=== PATIENT | female | born 1970 | race Caucasian/White ===

== ENCOUNTER 2019-05-17 07:45 | Emergency (ER) | payer BC ==
[~2019-05-17] VITALS: Ht 160 cm; Wt 44.5 kg
[2019-05-17 08:49] LABS: ABSOLUTE NEUTROPHILS 6.8 thou/uL (1.4-8.2); BASOPHILS 1.3 % (0.0-2.0); EOSINOPHILS 1.6 % (0.0-3.0); HEMATOCRIT 35.3 % (37.0-47.0); HEMOGLOBIN 11.5 gm/dL (12.0-15.0); LYMPHOCYTES 15.9 % (24.0-44.0); MCH 26.7 pg (26.0-34.0); MCHC 32.5 g/dL (28.0-37.0); MCV 81.9 fL (80.0-100.0); MONOCYTES 6.6 % (1.0-8.0); PLATELET COUNT 281 thou/uL (150-400); POLYS 74.6 % (36.0-66.0); RBC 4.31 mil/uL (4.20-5.00); WBC 9.1 thou/uL (4.0-11.0)
[2019-05-17 08:58] LABS: ANION GAP 9 mmol/L (7-16); BUN 6 mg/dL (7-18); CALCIUM 8.7 mg/dL (8.5-10.1); CHLORIDE 105 mmol/L (98-107); CO2 26 mmol/L (21-32); CREATININE 0.7 mg/dL (0.6-1.0); GLUCOSE 84 mg/dL (74-106); SODIUM 140 mmol/L (136-145)
[2019-05-17 09:09] LABS: ALBUMIN 3.8 g/dL (3.4-5.0); MAGNESIUM 2.1 mg/dL (1.8-2.4); SGOT 28 U/L (15-37); SGPT 31 U/L (30-65); TOTAL BILIRUBIN 0.5 mg/dL (<0.1-1.0); TROPONIN-I <0.06 ng/mL (<0.06)
[2019-05-17 10:04] VITALS: BP 118/84
--- NOTE | 2019-05-18 10:50 | EKG ---
[place] [address] [facility] [place] [address] ELECTROCARDIOGRAM REPORT Name: SIENNA RIVAS [facility] [id number] ������������������ Admission: 05/17/19 ������������������ Attend Phys: Discharge: 05/17/19 ������������������ Date of : 72 Report #: [id number] ����������������������������������������������������������������� [id number] THIS REPORT FOR: //name// [facility] ED Test Date: 2019-05-17 Test Time: 08:10:32 Pat Name: SIENNA RIVAS Department: Room: Gender: F Associate Dean Of Women: Nilson ALVAREZ RN : 1970 Requested By: Frank You Order Number: [id number] MD: Jake Pham Measurements Intervals [place] Rate: 99 P: 56 OK: 139 QRS: 66 QRSD: 83 T: 23 QT: 364 QTc: 468 Interpretive Statements Sinus rhythm Normal tracing No previous ECG available for comparison Electronically Signed On 05-18-2019 10:49:43 CDT by Jake Pham [email or web address] ��������������������������������������������� <ELECTRONICALLY SIGNED> ���������������������������������������� By: Jake Pham MD, [facility] ��������������������������������������������� 05/18/19 1049 0810 0810 Jake Pham MD, FAC /EPI
== END 2019-05-17 10:04 | disposition home or self-care (01) ==
LOC: ER 07:45
PROVIDERS: Emergency Medicine
DX: I47.1 Supraventricular tachycardia (principal)

== ENCOUNTER → 2019-05-24 | Outpatient (CLI) | payer BC, OTHER ==
--- NOTE | 2019-05-24 09:41 | 2DMMODE ---
[facility] [place] [address] 2 D/M-MODE ECHOCARDIOGRAM Name: SIENNA RIVAS Room #: REG [facility]#: [id number] ������������� Admission: 05/24/19 ������������� Attend Phys: Yohannes Calle Discharge: ��� ������������� ��� Date of : 72 Date of Service: 05/24/19 0941 �� Report #: [id number] �������� ��������������������������������������������[id number] THIS REPORT FOR: //name// APPROVED REPORT Study performed: 05/24/2019 08:07:00 EXAM: Comprehensive 2D, Doppler, and color-flow Echocardiogram Patient Location: Out-Patient Status: routine BSA: 1.32 HR: 86 bpm BP: 132/86 mmHg Rhythm: NSR Other Information Study Quality: Good Indications SVT 2D Dimensions RVDd: 27.12 mm IVSd: 8.97 (7-11mm) LVOT Diam: 19.22 (18-24mm) LVDd: 37.28 mm PWd: 8.61 (7-11mm) LVDs: 26.60 (25-40mm) Aortic Root: 31.84 mm Volumes Left Atrial Volume (Systole) Single Plane 4CH: 13.24 mL Single Plane 2CH: 22.07 mL LA ESV Index: 14.00 mL/m2 Aortic Valve AoV Peak Devonte.: 1.29 m/s AO Peak Gr.: 6.68 mmHg LVOT Max P.02 mmHg LVOT Max V: 1.12 m/s JAN Vmax: 2.51 cm2 Mitral Valve E/A Ratio: 1.0 MV Decel. Time: 195.13 ms MV E Max Devonte.: 0.65 m/s [facility] [address] [address] 2 D/M-MODE ECHOCARDIOGRAM Name: EVELYNSIENNA Margret Room #: REG [facility]#: [id number] ������������� Admission: 05/24/19 ������������� Attend Phys: Yohannes Calle Discharge: ��� ������������� ��� Date of : 72 Date of Service: 05/24/19 0941 �� Report #: [id number] �������� ��������������������������������������������[id number] MV A Devonte.: 0.62 m/s MV PHT: 56.59 ms IVRT: 79.58 ms Pulmonary Valve PV Peak Devonte.: 0.84 m/s PV Peak Gr.: 2.79 mmHg Pulmonary Vein P Vein S: 0.75 m/s P Vein D: 0.57 m/s P Vein S/D Ratio: 1.32 Tricuspid Valve TR Peak Devonte.: 1.94 m/s RAP Estimate: 5.00 mmHg TR Peak Gr.: 15.05 mmHg PA Pressure: 20.00 mmHg Left Ventricle The left ventricle is normal size. There is normal LV segmental wall motion. There is normal left ventricular wall thickness. Left ventricular systolic function is normal. LVEF is 55-60%. The left ventricular diastolic function is normal. Right Ventricle The right ventricle is normal size. The right ventricular systolic function is normal. Atria The left atrium size is normal. The right atrium size is normal. Aortic Valve The aortic valve is normal in structure. No aortic regurgitation is present. There is no aortic valvular stenosis. Mitral Valve The mitral valve is normal in structure. Trace mitral regurgitation. Tricuspid Valve The tricuspid valve is normal in structure. Trace to mild tricuspid regurgitation. Estimated PAP is 20-25mmHg. Pulmonic Valve The pulmonary valve is normal in structure. Trace pulmonic regurgitation. [facility] [place] [address] 2 D/M-MODE ECHOCARDIOGRAM Name: SIENNA RIVAS Room #: REG [facility]#: [id number] ������������� Admission: 05/24/19 ������������� Attend Phys: Yohannes Calle Discharge: ��� ������������� ��� Date of : 72 Date of Service: 05/24/19 0941 �� Report #: [id number] �������� ��������������������������������������������[id number] [employer] The aortic root is normal in size. Ascending aorta is not well visualized. IVC is normal in size and collapses >50% with inspiration. Pericardium There is no pericardial effusion. <Conclusion> The left ventricle is normal size. LVEF is 55-60%. The aortic valve is normal in structure. The mitral valve is normal in structure. Trace mitral regurgitation. The tricuspid valve is normal in structure. Trace to mild tricuspid regurgitation. Estimated PAP is 20-25mmHg. The pulmonary valve is normal in structure. Trace pulmonic regurgitation. There is no pericardial effusion. ��������������������������������������������� <ELECTRONICALLY SIGNED> ���������������������������������������� By: Yosvany Villanueva MD ��������������������������������������������� 05/24/19940 0 0 Yosvany Villanueva MD /INF
== END ==
LOC: CV 07:49
DX: I07.1 Rheumatic tricuspid insufficiency (principal)

== ENCOUNTER → 2019-05-30 | Outpatient (CLI) | payer BC, OTHER ==
[~2019-05-30] VITALS: Ht 149.9 cm; Wt 41.3 kg
--- NOTE | ~2019-05-30 | P ---
[facility] [place] [address] PROCEDURE REPORT Name: SIENNA RIVAS Room #: REG [facility]#: [id number] Admission: 05/30/19 ������������������ Attend Phys: Yohannes Calle MD Discharge: ������������������ Date of : 72 Report #: [id number] THIS REPORT FOR: //name// CC: Yohannes Tran DATE OF SERVICE: 05/30/2019 PREOPERATIVE DIAGNOSIS: Supraventricular tachycardia. POSTOPERATIVE DIAGNOSIS: Typical atrioventricular priscilla reentrant tachycardia. PROCEDURES PERFORMED: 1. SVT ablation, CPT code 62561. 2. EP with left atrial pacing and recording, CPT code 14008. 3. Program stimulation and pacing after IV drug infusion, CPT code 75136. 4. 3D mapping, CPT code 31672. HISTORY OF PRESENT ILLNESS: The patient is a 48-year-old female with a history of recurrent SVT, here for an ablation. ANESTHESIA: The patient underwent MAC anesthesia with no anesthesia related complications. DESCRIPTION OF PROCEDURE: The patient underwent informed consent. We discussed the details of the procedure including the risks, which include but not limited to bleeding, vascular damage, cardiac perforation, stroke, [place] as well as damage to the venetie ira conduction system requiring permanent pacemaker. She understood these risks and is willing to proceed. The patient was brought to the EP laboratory in a fasting and sedated state and prepped and draped in a sterile fashion. Next, I injected lidocaine to the bilateral groin regions and obtained access to the bilateral femoral veins placing an 8 and 6-Austrian short sheath in the right femoral vein and a 6 and 7-Austrian short sheath in the left femoral vein. These were performed using the modified Seldinger technique. Of note, the patient was a very short stature. She is 4 feet 7 inches and weighs 90 pounds. She also has some scoliosis which made placement of catheters via the IVC somewhat challenging. I had some initial challenges getting the catheters from the left groin to go into the IVC. However, I was eventually able to get my quadripolar catheter into the right ventricular apex and get the decapolar catheter into the coronary sinus. Using the Duo-Decapolar catheter, I was able to measure the AH interval and the HV interval. Next, I was able to advance my quadripolar catheter for the HRA, but I could never get my quadripolar catheter up into the heart to place this at the His bundle. The decapolar catheter was utilized for left atrial pacing and recording. [facility] [address] [place] [address] PROCEDURE REPORT Name: SIENNA RIVAS Room #: REG [facility]#: [id number] Admission: 05/30/19 ������������������ Attend Phys: Yohannes Calle MD Discharge: ������������������ Date of : 72 Report #: [id number] Basic EP study was performed. At baseline, the patient was in sinus rhythm with a sinus cycle length of 755 milliseconds, VA interval 150 milliseconds, QRS duration 65 milliseconds, QT interval 370 milliseconds, AH interval 80 milliseconds, and HV interval 37 milliseconds. Next, atrial burst pacing was performed. The patient went into SVT during the first drive train. The tachycardia cycle length was 330 milliseconds, septal VA time was 35 milliseconds and this was consistent with AVNRT. Ventricular entrainment was performed and a VAHV response was easily reproducible. I terminated the tachycardia and I could easily induce this with any atrial burst pacing. Single atrial extrastimuli were delivered and atrial ERP was noted at 220 milliseconds at [address] cycle length[address] Double atrial extrastimuli were delivered, and I could not induce SVT. Ventricular pacing was performed and VA block was noted to be 330 milliseconds. VA ERP was noted to be 260 milliseconds at [address] cycle length. Based on these findings, a diagnosis of typical AV priscilla reentrant tachycardia was made. Next, I placed an SR0 and a 4-mm Biosense Yu ablation catheter into the right atrium and I created a detailed 3D geometry of the His bundle and the slow pathway region. Given her small stature, I was not surprised that the His bundle was very close to her slow pathway region. I looked for slow pathway potentials and these were approximately 9 mm below the His cloud. Given the close proximity of the slow pathway to the His cloud, I decided to remove the Biosense Yu ablation catheter and used a cryoablation catheter. I used a LoopUptronic 6 mm Freezor Xtra ablation catheter. I performed a total of 6 cryo lesions. I found my slow pathway. I did two lesions anterior to the slow pathway, 2 lesions right on the slow pathway and 2 lesions slightly posterior to the slow pathway. Post-ablation a basic EP study was performed. Post-ablation, the patient remained in sinus rhythm. Atrial burst pacing was performed and AV block was now 420 milliseconds, AV priscilla ERP was 400 milliseconds at [address] cycle length. Ventricular pacing was performed and VA block was noted to be 270 milliseconds. An isoproterenol infusion was initiated at 2 mcg per minute and AV block was noted at 230 milliseconds, atrial ERP was noted at 170 milliseconds at [address] cycle length. Aggressive atrial burst pacing was performed and his SVT was no longer inducible. Isoproterenol was turned off and AV block was noted at 280 milliseconds. Post-ablation, the patient was in sinus rhythm with sinus cycle length of 550 milliseconds, VA interval 130 milliseconds, QRS duration 65 milliseconds, QT interval 330 milliseconds, AH interval 61 milliseconds, and HV interval 38 milliseconds. As such, all catheters and sheaths were pulled, hemostasis was obtained and the patient awoke neurologically and hemodynamically intact with no complications and no significant bleeding. CONCLUSIONS: 1. Successful ablation of typical AV priscilla reentrant tachycardia with [facility] [address] [place] [address] PROCEDURE REPORT Name: EVELYNSIENNA LYNN Room #: REG [facility]#: [id number] Admission: 05/30/19 ������������������ Attend Phys: Yohannes Calle MD Discharge: ������������������ Date of : 72 Report #: [id number] cryoablation. 2. Normal SA priscilla function. 3. Normal AV priscilla function. 4. Normal His-Purkinje function. 5. No other inducible arrhythmias on or off isoproterenol post cryoablation. ��������������������������������������������� ���������������������������������������� By: ��������������������������������������������� 1547 180 Yohannes Calle MD /nt
[2019-05-30 07:02] VITALS: BP 158/82
[2019-05-30 07:14] LABS: ABSOLUTE NEUTROPHILS 5.3 thou/uL (1.4-8.2); BASOPHILS 1.3 % (0.0-2.0); EOSINOPHILS 3.6 % (0.0-3.0); HEMOGLOBIN 11.6 gm/dL (12.0-15.0); LYMPHOCYTES 19.8 % (24.0-44.0); MCH 26.4 pg (26.0-34.0); MCHC 32.2 g/dL (28.0-37.0); MCV 81.9 fL (80.0-100.0); MONOCYTES 7.7 % (1.0-8.0); PLATELET COUNT 267 thou/uL (150-400); POLYS 67.6 % (36.0-66.0); RDW 17.4 % (10.5-14.5); WBC 7.9 thou/uL (4.0-11.0)
[2019-05-30 07:29] LABS: APTT 26.6 Seconds (24.5-32.8)
[2019-05-30 07:33] LABS: ALBUMIN 3.9 g/dL (3.4-5.0); CALCIUM 9.1 mg/dL (8.5-10.1); CREATININE 0.7 mg/dL (0.6-1.0); POTASSIUM 3.8 mmol/L (3.5-5.1); TOTAL BILIRUBIN 0.6 mg/dL (<0.1-1.0); TOTAL PROTEIN 7.3 g/dL (6.4-8.2)
== END | disposition home or self-care (01) ==
LOC: CATH 06:34
PROVIDERS: Internal Medicine Cardiovascular Disease
DX: I47.1 Supraventricular tachycardia (principal); F17.210 Nicotine dependence, cigarettes, uncomplicated; Z79.01 Long term (current) use of anticoagulants
CPT/HCPCS: 62110; 62900; 70005